=== PATIENT | male | born 1975 | race African-American/Black ===

== ENCOUNTER 2019-01-04 16:32 | Emergency (ER) | payer SELFPAY ==
[~2019-01-04] VITALS: Ht 167.6 cm; Wt 72.0 kg
[~2019-01-04 16:32] MED LIST: ASPI-1158 PO
[2019-01-04] MEDS ORDERED: AZITHROMYCIN 500 MG TABLET PO ONE (17:30)
[2019-01-04] MEDS ORDERED: LIDOCAINE HCL 1% 20ML VIAL (Pyxis) INJ INFIL ONE (17:30)
[2019-01-04] MEDS ORDERED: CEFTRIAXONE SODIUM 250 MG/VIAL IM ONE (17:30)
[2019-01-04 17:33] LABS: CLARITY URINE CLEAR (CLEAR); COLOR URINE YELLOW (YELLOW); KETONES URINE NEGATIVE (NEGATIVE); LEUKOCYTE ESTERASE URINE NEGATIVE (NEGATIVE); NITRITE URINE NEGATIVE (NEGATIVE); OCCULT BLOOD URINE NEGATIVE (NEGATIVE); PROTEIN URINE NEGATIVE (NEGATIVE); SPECIFIC GRAVITY URINE 1.002 (1.005-1.030); UROBILINOGEN URINE 0.2 E.U./dL (0.2-1.0)
[2019-01-04 18:12] VITALS: BP 110/74
== END 2019-01-04 18:12 | disposition home or self-care (01) ==
LOC: ER 16:32
DX: R30.0 Dysuria (principal); A64 Unspecified sexually transmitted disease; F12.10 Cannabis abuse, uncomplicated; R39.15 Urgency of urination; Z90.49 Acquired absence of other specified parts of digestive tract; Z79.82 Long term (current) use of aspirin
CPT/HCPCS: 81003; 87086; 96372; 99283; J0696; J3490

== ENCOUNTER 2019-07-28 19:37 | Emergency (ER) | payer SELFPAY ==
[~2019-07-28] VITALS: Ht 167.6 cm; Wt 67.0 kg
[2019-07-28] MEDS ORDERED: BACITRACIN ZINC OINT UDPKT TOP ONE (23:00)
[2019-07-28] MEDS ORDERED: LIDOCAINE HCL/PF 1% 10 MG/ML 5ML VIAL IJ ONE (23:00)
[2019-07-29 00:24] VITALS: BP 129/74
== END 2019-07-29 00:25 | disposition home or self-care (01) ==
LOC: ER 19:37
DX: S62.639A Displaced fracture of distal phalanx of unspecified finger, initial encounter for closed fracture (principal); S01.81XA Laceration without foreign body of other part of head, initial encounter; F17.200 Nicotine dependence, unspecified, uncomplicated; F12.10 Cannabis abuse, uncomplicated; Z90.49 Acquired absence of other specified parts of digestive tract; Y08.89XA Assault by other specified means, initial encounter; Y93.9 Activity, unspecified; Y92.89 Other specified places as the place of occurrence of the external cause; Y99.8 Other external cause status
CPT/HCPCS: 12013; 73140; 99283; J3490

== ENCOUNTER 2019-07-30 19:13 | Emergency (ER) | payer SELFPAY | END 2019-07-30 21:48 | disposition left against medical advice (07) | LOC: ER 19:13 | DX: Z53.21 Procedure and treatment not carried out due to patient leaving prior to being seen by health care provider (principal) ==

== ENCOUNTER 2019-08-03 15:50 | Emergency (ER) | payer MEDICAID ==
[~2019-08-03] VITALS: Ht 172.7 cm; Wt 73.0 kg
[2019-08-03 21:02] VITALS: BP 123/63
== END 2019-08-03 21:04 | disposition home or self-care (01) ==
LOC: ER 15:50
DX: S01.81XD Laceration without foreign body of other part of head, subsequent encounter (principal); Z79.82 Long term (current) use of aspirin; X58.XXXD Exposure to other specified factors, subsequent encounter
CPT/HCPCS: 99281

== ENCOUNTER 2021-05-27 20:33 | Emergency (ER) | payer MEDICAID ==
[~2021-05-27] VITALS: Ht 167.6 cm; Wt 69.0 kg
[~2021-05-27 20:33] MED LIST changes: -ASPI-1158 PO; +ASPI-1406 PO
[2021-05-27 21:18] LABS: CLARITY URINE CLOUDY (CLEAR); COLOR URINE YELLOW (YELLOW); KETONES URINE NEGATIVE (NEGATIVE); LEUKOCYTE ESTERASE URINE NEGATIVE (NEGATIVE); NITRITE URINE NEGATIVE (NEGATIVE); OCCULT BLOOD URINE NEGATIVE (NEGATIVE); PROTEIN URINE NEGATIVE (NEGATIVE); SPECIFIC GRAVITY URINE 1.022 (1.005-1.030)
[2021-05-27] MEDS ORDERED: DOXY100C5 MT (21:44)
[2021-05-27] MEDS ORDERED: CEFTRIAXONE 1 G PREMIX 50 ML IV ONE (21:45)
[2021-05-27] MEDS ORDERED: CEFTRIAXONE SODIUM 1 G/VIAL IM ONE (22:00)
[2021-05-27 22:04] VITALS: BP 124/70
== END 2021-05-27 22:17 | disposition home or self-care (01) ==
LOC: ER 20:33
DX: N34.2 Other urethritis (principal)
CPT/HCPCS: 81003; 96372; 99283; J0696

== ENCOUNTER 2022-12-09 22:24 | Emergency (ER) | payer SELFPAY ==
[~2022-12-09] VITALS: Ht 162.6 cm; Wt 64.0 kg
[~2022-12-09 22:24] MED LIST changes: +DOXY100C5 MT
[2022-12-10 00:33] LABS: BASOPHILS % 0.4 % (0.0-2.0); EOSINOPHILS % 0.4 % (0.0-5.0); HEMATOCRIT. 44.2 % (42.0-52.0); HEMOGLOBIN. 14.8 g/dL (14.0-18.0); LYMPHOCYTES % 26.3 % (20.0-50.0); MEAN CORPUSCULAR HEMOGLOBIN 29.2 pg (28.0-32.0); MEAN CORPUSCULAR VOLUME 87.3 fL (80.0-94.0); MEAN PLATELET VOLUME 7.6 fl (7.4-10.4); MONOCYTES % 10.8 % (2.0-8.0); NEUTROPHILS % 62.1 % (40.0-76.0); PLATELET 255 x1000/uL (130-400); RED BLOOD CELL COUNT 5.06 mill/uL (4.7-6.1); RED CELL DISTRIBUTION WIDTH 14.8 % (11.6-14.6)
[2022-12-10 00:39] LABS: CHLORIDE 101 mEq/L (98-107)
[2022-12-10 00:48] LABS: *AMPHETAMINES SCREEN URINE PRESUMTIVE POSITIVE (NEGATIVE); *BARBITURATES SCREEN URINE NEGATIVE (NEGATIVE); *BENZODIAZEPINES SCREEN URINE NEGATIVE (NEGATIVE); *COCAINE SCREEN URINE NEGATIVE (NEGATIVE); CANNABINOID URINE SCREEN PRESUMTIVE POSITIVE (NEGATIVE); METHADONE URINE SCREEN NEGATIVE (NEGATIVE); OPIATES URINE SCREEN NEGATIVE (NEGATIVE); PHENCYCLIDINE URINE SCREEN NEGATIVE (NEGATIVE)
[2022-12-10] MEDS ORDERED: NALO4SPR BOTHNSTRLS (01:46)
[2022-12-10 02:13] VITALS: BP 101/60
== END 2022-12-10 02:14 | disposition home or self-care (01) ==
LOC: ER 22:24
DX: T50.7X1A Poisoning by analeptics and opioid receptor antagonists, accidental (unintentional), initial encounter (principal); X58.XXXA Exposure to other specified factors, initial encounter; R41.82 Altered mental status, unspecified; F12.10 Cannabis abuse, uncomplicated
CPT/HCPCS: 36415; 71045; 80048; 80305; 85025; 99284

== ENCOUNTER 2025-02-10 18:08 | Emergency (ER) | payer BC ==
[~2025-02-10] VITALS: Ht 170.2 cm; Wt 75.0 kg
[~2025-02-10 18:08] MED LIST changes: +NALO4SPR BOTHNSTRLS
[2025-02-10 18:11] VITALS: O2SAT 100
[2025-02-10] MEDS ORDERED: ACET-2708 MT (21:30)
[2025-02-10 22:31] VITALS: BP 140/85; PULSE 80; RESP 17; TEMP 36.7; O2SAT 98
== END 2025-02-10 22:32 | disposition home or self-care (01) ==
LOC: ER 18:08
DX: S63.695A Other sprain of left ring finger, initial encounter (principal); Z79.82 Long term (current) use of aspirin; Z90.49 Acquired absence of other specified parts of digestive tract; X58.XXXA Exposure to other specified factors, initial encounter; Y93.89 Activity, other specified; Y92.89 Other specified places as the place of occurrence of the external cause; Y99.8 Other external cause status
CPT/HCPCS: 29130; 73130; 99283